=== PATIENT | male | born 1930 | race Caucasian/White ===

== ENCOUNTER 2019-06-04 11:05 | Emergency (ER) | payer MEDICARE ==
[2019-06-04] MEDS ORDERED: BABY ASPIRIN 81 MG CHEW ONE (11:27)
--- NOTE | 2019-06-04 11:35 | ERPHSYRPT ---
- History of Present Illness Time Seen by Provider: 06/04/19 11:20 Historian: patient, family Exam Limitations: no limitations Physician History: 88 y/o white male with no pmhx, no meds, no pcp, nkda presents to ED with dizziness and epigastric/lower substernal cp. both sx have subsided. pt arrives to ED with resolution of sx. his bp is low. denies blood loss of any kind. Timing/Duration: today Activities at Onset: activity (working in his shop) Location: substernal, epigastric Severity of Pain-Max: mild Severity of Pain-Current: none Associated Symptoms: dizziness Prior Chest Pain/Cardiac Workup: no prior chest pain, no prior cardiac workup, non-cardiac Nitro Today/Relief: no nitro taken today Aspirin Treatment Today: no aspirin today - Review of Systems Constitutional: No Symptoms Eyes: No Symptoms Ears, Nose, & Throat: No Symptoms Respiratory: No Symptoms Cardiac: Chest Pain Abdominal/Gastrointestinal: Abdominal Pain (epigastric) Genitourinary Symptoms: No Symptoms Musculoskeletal: No Symptoms Skin: No Symptoms Neurological: No Symptoms Psychological: No Symptoms Endocrine: No Symptoms Hematologic/Lymphatic: No Symptoms Immunological/Allergic: No Symptoms All Other Systems: Reviewed and Negative - Past Medical History Pertinent Past Medical History: No Neurological History: No Pertinent History ENT History: No Pertinent History Cardiac History: No Pertinent History Respiratory History: No Pertinent History Endocrine Medical History: No Pertinent History Musculoskeletal History: No Pertinent History GI Medical History: No Pertinent History History: No Pertinent History Psycho-Social History: No Pertinent History Male Reproductive Disorders: No Pertinent History - Past Surgical History Past Surgical History: No Neuro Surgical History: No Pertinent History Cardiac: No Pertinent History Respiratory: No Pertinent History Gastrointestinal: No Pertinent History Genitourinary: No Pertinent History Musculoskeletal: No Pertinent History Male Surgical History: No Pertinent History - Physical Exam General Appearance: no apparent distress, alert Eye Exam: PERRL/EOMI, eyes nml inspection Ears, Nose, Throat Exam: normal ENT inspection, moist mucous membranes Neck Exam: normal inspection, non-tender, supple, full range of motion Respiratory Exam: normal breath sounds, chest tenderness (mild epigastric), lungs clear, airway intact, No respiratory distress Cardiovascular Exam: regular rate/rhythm, normal heart sounds, normal peripheral pulses Gastrointestinal/Abdomen Exam: soft, normal bowel sounds, No tenderness Rectal Exam: not done Back Exam: normal inspection, normal range of motion, No CVA tenderness, No vertebral tenderness Extremity Exam: normal inspection, normal range of motion, pelvis stable Neurologic Exam: alert, oriented x 3, cooperative, rx specialist II-XII nml as tested Skin Exam: normal color, warm, dry Lymphatic Exam: No adenopathy SpO2 Interpretation: normal, borderline oxygenation O2 Delivery: Room Air - Course Nursing assessment & vital signs reviewed: Yes EKG Interpreted by Me: RATE ([id number]), Left Sherrill Deviation, NORMAL INTERVALS, NORMAL QRS, ST Elev (v2, v3, v4), Other (no comparison ekg) Ordered Tests: Active Orders 24 hr Category Date Time Status Canned Food Reconditioning Inspector STAT Care 06/04/19 11:44 Ordered EKG-ER Only STAT Care 06/04/19 11:44 Ordered IV Insertion STAT Care 06/04/19 11:44 Ordered Pulse Oximetry (ED) STAT Care 06/04/19 11:44 Ordered CBC W DIFF Stat Lab 06/04/19 11:44 Ordered CMP Stat Lab 06/04/19 11:44 Ordered PROTIME WITH INR Stat Lab 06/04/19 11:44 Ordered TROPONIN Q3H Lab 06/04/19 11:45 Ordered TROPONIN Q3H Lab 06/04/19 14:45 Ordered TROPONIN Q3H Lab 06/04/19 17:45 Ordered TROPONIN Q3H Lab 06/04/19 20:45 Ordered TROPONIN Q3H Lab 06/04/19 23:45 Ordered Medication Summary Generic Name Dose Route Start Last Admin Trade Name Freq PRN Reason Stop Dose Admin Sodium Chloride 1,000 mls @ 100 mls/hr 06/04/19 11:45 Sodium Chloride 0.9% 1000 Ml IV 07/04/19 11:44 .Q10H [place] Discontinued Medications Generic Name Dose Route Start Last Admin Trade Name Freq PRN Reason Stop Dose Admin Aspirin Confirm 06/04/19 11:27 Baby Aspirin 81 Mg Chew Administered 06/04/19 11:28 Dose 324 mg .ROUTE .STK-MED ONE Aspirin 324 mg 06/04/19 11:44 Baby Aspirin 81 Mg Chew PO 06/04/19 11:45 STAT ONE - Progress Progress: unchanged Air Movement: good Progress Note: 06/04/19 11:[address] patel ed at [facility] first for ekg verification then a second time for acceptance awaiting cardiology call. pt to be transferred ems here. pt agrees to cardiac cath and pacemaker placement but refuses open heart surgery. he also signed an dnr form at our facility per his wishes. Blood Culture(s) Obtained: No Antibiotics given: No Discussed with : Other ([facility]) Counseled pt/family regarding: diagnosis - Departure Departure Disposition: Transfer Clinical Impression: STEMI (ST elevation myocardial infarction) Condition: Fair Critical Care Time: Yes Critical Care Time(excluding separately billable procedures): Critical 30-74 mins Referrals: NIGEL DICKEY MD [Primary Care Provider] -
[2019-06-04] MEDS ORDERED: Sodium Chloride 0.9% 1000 ML 1,000 ML ONE (11:54)
[2019-06-04] MEDS: Sodium Chloride 0.9% 1000 ML 1,000 ML IV SCH (11:57)
[2019-06-04] MEDS: BABY ASPIRIN 81 MG CHEW PO ONE (11:57)
[2019-06-04 12:07] VITALS: BP 106/70; PULSE 98; O2SAT 92
[2019-06-04 12:08] LABS: Absolute Neutrophil Ct (ANC) 5.57 (1.4-6.9); BASOPHIL % 0.2 % (0.0-0.4); Basophil (Absolute #) 0.02 (0-0.4); Eosinophil % 5.6 % (0.00-5.0); Eosinophil (Absolute #) 0.55 (0-0.5); Hematocrit 41.8 % (42-50); Hemoglobin 13.3 gm/dl (12.5-18.0); Lymphocyte (Absolute #) 2.92 (1.0-4.6); Lymphocytes % 29.8 % (24.0-44.0); Mean Cell Volume 94.6 fl (78-100); Mean Corpuscular Hemoglobin 30.1 pg (26-32); Mean Corpuscular Hgb Concent. 31.8 g/dl (32-36); Mean Platelet Volume 11.8 fl (6-9.5); Monocyte (Absolute #) 0.73 (0.0-1.3); Monocytes % 7.5 % (0.0-12.0); Neutrophil % 56.9 % (36.0-66.0); Platelet Count 234 K/mm3 (150-450); Red Blood Count 4.42 M/mm3 (4.1-5.6); Red Cell Distribution Width 13.6 % (11.5-14.0); White Blood Count 9.8 K/mm3 (4.0-10.5)
[2019-06-04 12:18] LABS: INR 1.11 (0.8-3.0); PROTIME 12.6 SECONDS (8.83-12.87)
[2019-06-04 12:39] LABS: ALBUMIN 3.8 g/dL (3.5-5.0); ALKALINE PHOSPHATASE 71 U/L (38-126); BLOOD UREA NITROGEN 15 mg/dL (9-20); CHLORIDE 102 mmol/L (98-107); Calcium 9.2 mg/dL (8.4-10.2); Carbon Dioxide 30 mmol/L (22-30); Creatinine 1 0.89 mg/dL (0.66-1.25); Glucose 214 mg/dL (74-106); SGOT/AST 32 U/L (17-59); SGPT/ALT 13 U/L (0-50); SODIUM 142 mmol/L (137-145); Total Protein 7.5 g/dL (6.3-8.2)
[2019-06-04 12:40] LABS: Potassium 4.1 mmol/L (3.5-5.1)
== END 2019-06-04 11:55 | disposition short-term general hospital (02) ==
LOC: ED 11:05
DX: I21.3 ST elevation (STEMI) myocardial infarction of unspecified site (principal)
CPT/HCPCS: 36000; 36415; 80053; 84484; 85025; 85610; 93005; 93041; 94760; 96360; 99285; 99291; A9270-GY